=== PATIENT | male | born 1955 | race Hispanic/Latino ===

== ENCOUNTER → 2021-09-10 | Outpatient (CLI) | payer MEDICARE ==
[~2021-09-10] MED LIST: IOHEXOL 350 MG/ML 100ML INFUS..BTL IV ONE
== END | disposition home or self-care (01) ==
LOC: RAH 09:46
PROVIDERS: ATTEND Student in an Organized Health Care Education/Training Program
DX: R07.9 Chest pain, unspecified (principal)
CPT/HCPCS: 75574; Q9967